=== PATIENT | female | born 2005 | race African-American/Black ===

== ENCOUNTER 2025-08-08 17:14 | Emergency (ER) | payer OTHER, SELFPAY ==
--- NOTE | ~2025-08-08 | US_ITS ---
EXAMINATION: US pelvic complete w TV INDICATION: Abdominal pain. Ovarian cyst. Evaluate for torsion. Comparison:No prior studies for comparison. TECHNIQUE: Multiple transabdominal and endovaginal sonographic images of the pelvis performed. FINDINGS: The uterus measures 5.9 x 3.6 x 4.1 cm. The endometrial complex measures 2 mm. The right ovary measures 2.5 x 1.8 x 2.6 cm and the left ovary measures 6.2 x 3.5 x 6.2 cm. There is a mildly complicated left ovarian cyst measuring 5.9 cm with peripheral soft tissue component, likely complicated hemorrhagic cyst. There are small follicles in each ovary. Normal doppler signal in both ovaries. There is no free fluid in the pelvis. There are no abnormal masses seen on either side. IMPRESSION: 1. Probable benign complicated hemorrhagic left ovarian cyst measuring 5.9 cm. Consider follow-up ultrasound in 4-6 weeks to assess for resolution. No evidence for torsion. Reviewed, dictated and finalized at location O. IMPRESSION: 1. Probable benign complicated hemorrhagic left ovarian cyst measuring 5.9 cm. Consider follow-up ultrasound in 4-6 weeks to assess for resolution. No evidenc e for torsion.
--- NOTE | ~2025-08-08 | CT_ITS ---
CT abdomen pelvis w con INDICATION:lower abd pain . COMPARISON: None. TECHNIQUE: Axial images of the abdomen and pelvis were obtained following infusion of 100 mL Isovue 300. Dose optimization technique was utilized. FINDINGS: The lung bases are clear. The liver parenchyma is unremarkable. No intrahepatic mass or ductal dilatation is evident. The gallbladder is unremarkable. The pancreas and spleen are normal in appearance. The adrenal glands are symmetric in size. The kidneys demonstrate symmetric uptake and excretion of contrast. No cystic mass is evident. There is no solid mass. There is no hydronephrosis. Evaluation of the stomach and bowel loops are limited due to lack of oral contrast. The appendix is normal in appearance. The bladder and rectum are normal. Left ovarian cyst measures 5.2 x 4.7 cm. A small amount of free fluid in the pelvis. Uterus is retroverted. There is no significant retroperitoneal lymphadenopathy. The aorta, visceral vessels and renal arteries demonstrate normal caliber and patency. The lower thoracic and lumbar vertebrae are in normal alignment. IMPRESSION: Left ovarian cyst measures 5.2 cm. Small amount of free fluid in the pelvis. All CT scans at this facility are performed using low dose modulation techniques as appropriate to perform exam including the following: automated exposure control; use of iterative reconstruction technique; adjustment of the mA and/or kV according to patient size (this includes techniques or standardized protocols for targeted exams where dose is matched to indication/reason for exam). Reviewed, dictated and finalized at location S. IMPRESSION: Left ovarian cyst measures 5.2 cm. Small amount of free fluid in the pelvis. All CT scans at this facility are performed using low dose modulation techniqu es as appropriate to perform exam including the following: automated exposure c ontrol; use of iterative reconstruction technique; adjustment of the mA and/or kV according to patient size (this includes techniques or standardized protocol s for targeted exams where dose is matched to indication/reason for exam).
[2025-08-08 18:03] VITALS: BP 135/58; PULSE 80; RESP 20; TEMP 36.8; O2SAT 100
--- NOTE | 2025-08-08 18:30 | ED_ITS ---
HPI - Abdominal Pain General Chief Complaint: Abdominal Pain <SAVANNAH Ramos Last Filed: 08/08/25 18:45> Stated Complaint: abdominal pain <SAVANNAH Ramos Last Filed: 08/08/25 18:45> Time Seen by Provider: 08/08/25 18:30 <SAVANNAH Ramos Last Filed: 08/08/25 18:45> Focused HPI: Patient is a 19 y/o female who presents to the ED with c/o lower abdominal pain. Patient reports she was supposed to start her normal menstrual cycle last week but did not. She then started her menstrual cycle today. States it has been heavier than normal. She went to work and had a BM and developed severe pain/cramping in her lower abdomen afterwards. States pain is ongoing. Has not taken anything for pain. Reports mild nausea. Denies vomiting, fevers, urinary complaints. GENERAL: Well-appearing, well-nourished, and in no acute distress. HEAD: Normocephalic, atraumatic. CHEST: Clear to auscultation. ?No respiratory distress. HEART: Regular rate and rhythm.? ABD: Diffuse tenderness throughout dwayne lower abdomen and suprapubic region. Normoactive BS NEURO: ?Alert and oriented x3. Patient screened in triage and initial orders placed.? ?Additional care and disposition to be based upon?diagnostic testing and treatment. <SAVANNAH Ramos Last Filed: 08/08/25 18:45> Source: patient <SAVANNAH Ramos Last Filed: 08/08/25 18:45> Mode of arrival: ambulatory <SAVANNAH Ramos Last Filed: 08/08/25 18:45> Limitations: no limitations <SAVANNAH Ramos Last Filed: 08/08/25 18:45> Related Data Allergies/Adverse Reactions: Allergies Allergy/AdvReac Type Severity Reaction Status Date / Time No Known Allergies Allergy Verified 08/08/25 17:14 <SAVANNAH Ramos Last Filed: 08/08/25 18:45> Review of Systems 2 Review of Systems: All systems reviewed & are unremarkable except as noted in HPI and below <Ludy Hunt PA-C - Last Filed: 08/09/25 01:27> Exam 2 Narrative: GENERAL: Well-appearing, well-nourished, and in no acute distress. HEAD: Normocephalic, atraumatic. EYES: EOMI. CHEST: Clear to auscultation. No respiratory distress. No wheezes rales or rhonchi HEART: Regular rate and rhythm. No murmur heard. Normal peripheral pulses. ABDOMEN: Soft, nontender, nondistended, normal active bowel sounds. EXTREMITIES: Normal range of motion. No edema. SKIN: Warm, dry, no rash. NEURO: No focal deficits. Alert and oriented x3. PSYCH: Normal mood and affect <Ludy Hunt PA-C - Last Filed: 08/09/25 01:27> Course Vital Signs Vital signs: Vital Signs Temperature 98.3 F 08/08/25 18:03 Pulse Rate 80 08/08/25 18:03 Respiratory Rate 20 08/08/25 18:03 Blood Pressure 135/58 L 08/08/25 18:03 Pulse Oximetry 100 08/08/25 18:03 Oxygen Delivery Room Air 08/08/25 18:03 Temperature 98.3 F 08/08/25 18:03 Pulse Rate 80 08/08/25 18:03 Respiratory Rate 14 08/08/25 21:47 Blood Pressure 112/60 08/08/25 21:47 Pulse Oximetry 100 08/08/25 21:47 Oxygen Delivery Room Air 08/08/25 18:03 <Marlene Saba PA-C - Last Filed: 08/08/25 18:45> Vital Signs Temperature 98.3 F 08/08/25 18:03 Pulse Rate 80 08/08/25 18:03 Respiratory Rate 20 08/08/25 18:03 Blood Pressure 135/58 L 08/08/25 18:03 Pulse Oximetry 100 08/08/25 18:03 Oxygen Delivery Room Air 08/08/25 18:03 Temperature 98.3 F 08/08/25 18:03 Pulse Rate 80 08/08/25 18:03 Respiratory Rate 14 08/08/25 21:47 Blood Pressure 112/60 08/08/25 21:47 Pulse Oximetry 100 08/08/25 21:47 Oxygen Delivery Room Air 08/08/25 18:03 <SAVANNAH Farrell Last Filed: 08/09/25 01:27> MDM - Abdominal Pain MDM Narrative Medical decision making narrative: MSE by KIMBER in triage. <SAVANNAH Ramos Last Filed: 08/08/25 18:45> MSE by KIMBER in triage. Patient presents to the ER for abdominal pain. Paitent is afebrile and nontoxic appearing. Her vitals are stable. CBC with mild leukocytosis to 11.4. Metabolic panel without concerning findings. Urine without evidence of infection. Shows red blood cells, patient is currently on her menstrual cycle. test negative. CT abdomen pelvis showing a 5.2 cm left ovarian cyst. Ultrasound obtained for further evaluation. Normal vascular flow noted to ovaries. Patient updated on her workup and agrees with plan of care. She is to follow-up with gynecology. She was given warnings to return to the ER <Ludy Hunt PA-C - Last Filed: 08/09/25 01:27> Differential Diagnosis Differential diagnosis: Likely calculus of kidney, diverticulitis and other (ovarian cyst, UTI) < SAVANNAH Farrell Last Filed: 08/09/25 01:27> Lab Data Attestation: I reviewed the patient's lab results. <SAVANNAH Farrell Last Filed: 08/09/25 01:27> Result diagrams: 08/08/25 21:11 08/08/25 21:11 <SAVANNAH Ramos Last Filed: 08/08/25 18:45> Labs: Lab Results 08/08/25 08/08/25 Range/Units 21:11 21:14 WBC 11.4 H (4.5-10.0) K/mm3 RBC 5.42 H (4.2-5.4) M/mm3 Hgb 13.3 (12.0-15.0) g/dL Hct 39.3 (37.0-47.0) % MCV 72.5 L (80-100) fl MCH 24.5 L (26-34) pg MCHC 33.8 (32-36) g/dl RDW 14.6 H (11.5-14.5) % Plt Count 385 H (150-375) k/mm3 MPV 10.6 H (7.4-10.4) fl Immature Gran % (Auto) 0.3 (0-0.5) % Neut % (Auto) 72.4 (45.5-73.1) % Lymph % (Auto) 21.3 (18.3-44.2) % Edgar % (Auto) 5.2 (2.6-8.5) % Eos % (Auto) 0.4 (0-4.4) % Baso % (Auto) 0.4 (0.2-1.2) % Lymph # (Auto) 2.43 (0.9-3.2) K/mm3 Edgar # (Auto) 0.6 (0.1-0.6) K/mm3 Eos # (Auto) 0.0 (0-0.3) K/mm3 Baso # (Auto) 0.0 (0.0-0.1) K/mm3 Abs Immat Gran (auto) 0.03 (0.00-0.031) K/mm3 Absolute Neuts (auto) 8.3 H (1.3-6.7) K/mm3 Absolute Nucleated RBC 0.000 (0.0-0.012) K/mm3 Band Neutrophils % 0 (0-6) % Nucleated RBC % 0.0 (0.0-0.2) % Platelet Estimate Slightly increased (Adequate) Anisocytosis 1+ Microcytosis 1+ (NORMAL) Schistocytes None seen Sodium 137 (137-145) mmol/L Potassium 3.9 (3.4-5.0) mmol/L Chloride 105 (98-107) mmol/L Carbon Dioxide 25 (22-30) mmol/L Anion Gap 7 (4-12) mmol/L BUN 11 (7-17) mg/dL Creatinine 0.79 (0.7-1.0) mg/dL Estim Creat Clear Calc Not Reportable Estimated GFR > 60 (59 - ) Glucose 93 (65-110) mg/dL Calcium 9.3 (8.4-10.2) mg/dL Total Bilirubin 0.5 (0.2-1.3) mg/dL AST 31 (14-36) U/L ALT 18 (6-35) U/L Alkaline Phosphatase 71 (38-126) U/L Total Protein 8.3 H (6.3-8.2) g/dL Albumin 4.6 (3.5-5.1) g/dL Urine Color Yellow (Yellow) Urine Appearance Cloudy H (Clear) Urine pH 7.0 (5.0-9.0) Ur Specific [place] 1.025 (1.001-1.035) Urine Protein Trace (Negative) mg/dL Urine Glucose (UA) Negative (Negative) mg/dL Urine Ketones Trace H (Negative) mg/dL Ur Blood (Man) 3+ H (Negative) Urine Nitrate Negative (Negative) Urine Bilirubin Negative (Negative) Urine Urobilinogen 1.0 (<2.0) mg/dL Leukocyte Esterase Rfl Trace H (Negative) EMI/UL Urine RBC 51-100 H (0-2) /hpf Urine WBC 0-5 (0-3) /hpf Ur Squamous Epith Cells Occasional (Few) /hpf Urine Bacteria Rare /hpf Urine Casts 0-2 POC Urine HCG, Qual Negative (Negative) <Marlene Saba PA-C - Last Filed: 08/08/25 18:45> Lab Results 08/08/25 08/08/25 Range/Units 21:11 21:14 WBC 11.4 H (4.5-10.0) K/mm3 RBC 5.42 H (4.2-5.4) M/mm3 Hgb 13.3 (12.0-15.0) g/dL Hct 39.3 (37.0-47.0) % MCV 72.5 L (80-100) fl MCH 24.5 L (26-34) pg MCHC 33.8 (32-36) g/dl RDW 14.6 H (11.5-14.5) % Plt Count 385 H (150-375) k/mm3 MPV 10.6 H (7.4-10.4) fl Immature Gran % (Auto) 0.3 (0-0.5) % Neut % (Auto) 72.4 (45.5-73.1) % Lymph % (Auto) 21.3 (18.3-44.2) % Edgar % (Auto) 5.2 (2.6-8.5) % Eos % (Auto) 0.4 (0-4.4) % Baso % (Auto) 0.4 (0.2-1.2) % Lymph # (Auto) 2.43 (0.9-3.2) K/mm3 Edgar # (Auto) 0.6 (0.1-0.6) K/mm3 Eos # (Auto) 0.0 (0-0.3) K/mm3 Baso # (Auto) 0.0 (0.0-0.1) K/mm3 Abs Immat Gran (auto) 0.03 (0.00-0.031) K/mm3 Absolute Neuts (auto) 8.3 H (1.3-6.7) K/mm3 Absolute Nucleated RBC 0.000 (0.0-0.012) K/mm3 Band Neutrophils % 0 (0-6) % Nucleated RBC % 0.0 (0.0-0.2) % Platelet Estimate Slightly increased (Adequate) Anisocytosis 1+ Microcytosis 1+ (NORMAL) Schistocytes None seen Sodium 137 (137-145) mmol/L Potassium 3.9 (3.4-5.0) mmol/L Chloride 105 (98-107) mmol/L Carbon Dioxide 25 (22-30) mmol/L Anion Gap 7 (4-12) mmol/L BUN 11 (7-17) mg/dL Creatinine 0.79 (0.7-1.0) mg/dL Estim Creat Clear Calc Not Reportable Estimated GFR > 60 (59 - ) Glucose 93 (65-110) mg/dL Calcium 9.3 (8.4-10.2) mg/dL Total Bilirubin 0.5 (0.2-1.3) mg/dL AST 31 (14-36) U/L ALT 18 (6-35) U/L Alkaline Phosphatase 71 (38-126) U/L Total Protein 8.3 H (6.3-8.2) g/dL Albumin 4.6 (3.5-5.1) g/dL Urine Color Yellow (Yellow) Urine Appearance Cloudy H (Clear) Urine pH 7.0 (5.0-9.0) Ur Specific [place] 1.025 (1.001-1.035) Urine Protein Trace (Negative) mg/dL Urine Glucose (UA) Negative (Negative) mg/dL Urine Ketones Trace H (Negative) mg/dL Ur Blood (Man) 3+ H (Negative) Urine Nitrate Negative (Negative) Urine Bilirubin Negative (Negative) Urine Urobilinogen 1.0 (<2.0) mg/dL Leukocyte Esterase Rfl Trace H (Negative) EMI/UL Urine RBC 51-100 H (0-2) /hpf Urine WBC 0-5 (0-3) /hpf Ur Squamous Epith Cells Occasional (Few) /hpf Urine Bacteria Rare /hpf Urine Casts 0-2 POC Urine HCG, Qual Negative (Negative) <Ludy Hunt PA-C - Last Filed: 08/09/25 01:27> Imaging Data Radiologist's impression: ITS Impressions Abdomen/Pelvis CT 08/08/25 22:02 IMPRESSION: Left ovarian cyst measures 5.2 cm. Small amount of free fluid in the pelvis. All CT scans at this facility are performed using low dose modulation techniques as appropriate to perform exam including the following: automated exposure control; use of iterative reconstruction technique; adjustment of the mA and/or kV according to patient size (this includes techniques or standardized protocols for targeted exams where dose is matched to indication/reason for exam). <SAVANNAH Ramos Last Filed: 08/08/25 18:45> ITS Impressions Abdomen/Pelvis CT 08/08/25 22:02 IMPRESSION: Left ovarian cyst measures 5.2 cm. Small amount of free fluid in the pelvis. All CT scans at this facility are performed using low dose modulation techniques as appropriate to perform exam including the following: automated exposure control; use of iterative reconstruction technique; adjustment of the mA and/or kV according to patient size (this includes techniques or standardized protocols for targeted exams where dose is matched to indication/reason for exam). US pelvic complete: Normal vascular flow to the ovaries. 5.9 cm left ovarian cyst <SAVANNAH Farrell Last Filed: 08/09/25 01:27> Critical Care Time Critical Care Time Critical Care Time: No <SAVANNAH Farrell Last Filed: 08/09/25 01:27> Discharge Plan Discharge Clinical Impression: Ovarian cyst Qualifiers: Laterality: left Qualified Code(s): N83.202 - Unspecified ovarian cyst, left side <SAVANNAH Ramos Last Filed: 08/08/25 18:45> Patient Disposition: Home <SAVANNAH Ramos Last Filed: 08/08/25 18:45> Condition: Stable <SAVANNAH Ramos Last Filed: 08/08/25 18:45> Instructions: Ovarian Cyst (ED) <SAVANNAH Ramos Last Filed: 08/08/25 18:45> Additional Instructions: Return to the ER if you experience fever, abdominal pain with nausea and vomiting, you are unable to keep down liquids or solids, or any other symptoms that are concerning to you Tylenol or Ibuprofen as needed for pain Follow up with gynecology <SAVANNAH Ramos Last Filed: 08/08/25 18:45> Patient Language: Upper Sorbian <SAVANNAH Ramos Last Filed: 08/08/25 18:45> Follow-up/Referrals: PHYSICIAN,[employer] SUPERVISOR [Non-Staff, Internal Medicine] Bebo Mcclellan MD [Physician, [employer]] <SAVANNAH Ramos Last Filed: 08/08/25 18:45>
[2025-08-08 21:18] LABS: BEDSIDEPREGUCG Negative (Negative)
[2025-08-08 21:19] LABS: Hematocrit 39.3 % (37.0-47.0); Hemoglobin 13.3 g/dL (12.0-15.0); Immature Granulocyte Percent A 0.3 % (0-0.5); Lymphocytes Absolute Auto 2.43 K/mm3 (0.9-3.2); Mean Corpuscular HGB Conc 33.8 g/dl (32-36); Mean Corpuscular Hemoglobin 24.5 pg (26-34); Mean Corpuscular Volume 72.5 fl (80-100); Nucleated Red Blood Cells Absolute Auto 0.000 K/mm3 (0.0-0.012); Nucleated Red Blood Cells Perc 0.0 % (0.0-0.2); Platelet Count Result 385 k/mm3 (150-375); Red Blood Count 5.42 M/mm3 (4.2-5.4); White Blood Count 11.4 K/mm3 (4.5-10.0)
[2025-08-08 21:26] LABS: Add Urine Microscopic? YES; Appearance Urine Cloudy (Clear); Glucose Urine UA Negative (Negative); Leukocyte Esterase Ur Trace LEU/UL (Negative); Nitrate Urine Negative (Negative); Non Pathogenic Casts 0-2; Specific Grav Ur 1.025 (1.001-1.035)
[2025-08-08 21:37] LABS: Alanine Aminotransferase 18 U/L (6-35); Albumin Level 4.6 g/dL (3.5-5.1); Alkaline Phosphatase 71 U/L (38-126); Anion Gap 7 mmol/L (4-12); Aspartate Amino Transferase 31 U/L (14-36); Bilirubin,Total 0.5 mg/dL (0.2-1.3); Blood Urea Nitrogen 11 mg/dL (7-17); Calcium 9.3 mg/dL (8.4-10.2); Carbon Dioxide 25 mmol/L (22-30); Chloride 105 mmol/L (98-107); Estimated Glomerular Filt Rate > 60; Glucose 93 mg/dL (65-110); Potassium 3.9 mmol/L (3.4-5.0); Sodium 137 mmol/L (137-145); Total Protein 8.3 g/dL (6.3-8.2)
[2025-08-08 21:42] LABS: Microcytosis 1+ (NORMAL); Schistocytes None Seen
[2025-08-08 21:43] LABS: Anisocytosis 1+; Band Neutrophils Percent 0 % (0-6)
[2025-08-08 21:47] VITALS: BP 112/60; RESP 14; O2SAT 100
--- NOTE | 2025-08-08 23:06 | PC.NURSE ---
This RN received report from Dixie DIANA at this time.
[2025-08-08] MEDS: MORPHINE SULFATE (*CRX) 4 MG/ML INJ 2 MG IV PUSH (23:50)
[2025-08-08] MEDS: ONDANSETRON INJ 4 MG/2 ML VIAL IV PUSH (23:50)
== END 2025-08-09 01:39 | disposition home or self-care (01) ==
PROVIDERS: Physician Assistant; Emergency Provider Physician Assistant; PCP Family Medicine
DX: N83.202 Unspecified ovarian cyst, left side (principal)
CPT/HCPCS: 36415; 74177; 76830; 76856; 80053; 81001; 81025; 85025; 96374; 96375; 99284; J2270; J2405; Q9967